=== PATIENT | female | born 1965 | race Caucasian/White ===

== ENCOUNTER 2016-08-12 22:22 | Emergency (ER) | payer OTHER ==
[~2016-08-12] VITALS: Ht 165.1 cm; Wt 77.2 kg
[~2016-08-12 22:22] MED LIST: ALBU2.5V4 IH; ALBU8.5H4 IH; ALPR1TAB7 PO; BECL8.7A6 IH; IBUP-1827 PO; LEVO88TA4 PO; LITH300T2 PO; LORA10CA PO; SIME80TA53 PO; [UNRECOGNIZED DRUG - OTHER] SUBCUTA079
[2016-08-12 22:24] VITALS: BP 159/98; PULSE 98; RESP 16; O2SAT 99
[2016-08-12 23:25] VITALS: BP_SYST 106; BP_SYST 146; BP_DIAS 71; BP_DIAS 89; PULSE 60; PULSE 98; RESP 18; O2SAT 100; O2SAT 98
--- NOTE | 2016-08-13 00:19 | ED.REPORT ---
HPI-General Illness Date of Service Aug 13, 2016 ED Provider: Bill Baer MD The patient is a 50year old female who presents to the ED due to toe fungus onset 3 weeks ago. She recently found out that her house has active, toxic mold and bed bugs. The mold is going to be removed from her house tomorrow. She has been having some wheezing and is concerned that this is also due to mold in her home. She has multiple vague complaints which all seem to be related to her concern about presence of mold in the house. Nursing Notes Stated Complaint: SHORT OF BREATH,POSSIBILITY OF MOLD EXPOSURE Chief Complaint: General Complaint Nursing Notes Reviewed: Yes Allergies: Coded Allergies: cephalexin (Verified Allergy, Severe, ANAPHYLAXIS, 07/12/15) Animal Dander (Verified Allergy, Unknown, UNKNOWN, 07/12/15) fentanyl (Verified Adverse Reaction, Intermediate, Nausea, 02/15/16) Patient states "it didnt help my pain and it made me really nauseated." Uncoded Allergies: "EVERYTHING OUTSIDE." (Allergy, Unknown, UNKNOWN (TOMATO, CAT HAIR), ) Scheduled Beclomethasone Dipropionate (Qvar) 8.7 Gm Aer.w.adap 8.7 GM IH BID Levothyroxine (Levothyroxine) 88 Mcg Tablet 88 MCG PO DAILY [place] Carbonate ([place] Carbonate) 300 Mg Tablet 300 MG PO DAILY Loratadine (Claritin) 10 Mg Capsule 10 MG PO DAILY Scheduled PRN Albuterol HFA (Albuterol HFA) 8.5 Gm Hfa.aer.ad 1 PUFF IH Q4 PRN PRN For Shortness of Breath Albuterol Neb Soln (Albuterol Neb Soln) 2.5 Mg/3 Ml Vial.neb 2.5 MG IH TID PRN PRN For Shortness of Breath Alprazolam (Alprazolam) 1 Mg Tablet 1 MG PO HS PRN PRN For Anxiety Ibuprofen (Ibuprofen) 600 Mg Tablet 600 MG PO QID PRN PRN For Pain Simethicone (Gas-X) 80 Mg Tablet 80 MG PO QID PRN PRN Flatulence Miscellaneous Medications ([B12 injection]) [id number] General Time Seen by MD: 23:01 Chief Complaint Other (toe fungus) Hx Obtained From: Patient Arrived By: Walk-in Sudden in Onset?: Yes Onset Occurred: More than a week ago... (3 weeks) Symptom Duration: Since onset Severity: Current: No pain currently Recent Healthcare: No recent doctor visit, No recent hospitalization Similar Sx Previous: No Past Medical History Past Medical History Previous [place] Anxiety Depression Asthma Obstructive sleep apnea on CPAP Thyroid disease Cervical myelopathy-status post recent surgery by Dr. Leahy in April 2014 Symptomatic lower extremity edema Past Surgical History thyroidectomy - with some residual hoarseness neck surgery with plates inserted 04/2014 IV drug abuse, in remission 3 years Bunionectomy of right toe Reports: Appendectomy Family History Noncontributory Smoking History Current Every Day Smoker Social History Alcohol Use: Denies alcohol use Drug Use: In recovery, Meth Occupation lives with partner, no work or school 12/21/2015 Ambulatory Status Independent Review of Systems Full Review of Systems Constitutional: Denies: Chills, Fever Respiratory: Denies: Non-productive cough, Shortness of breath Musculoskeletal: Reports: Extremity swelling (bilateral lower extremity swelling) Skin: Reports Itching, Reports Rash (toe fungus), Denies Diaphoresis Neurologic: Denies: Change LOC, Dizziness, Headache, Lightheaded, Problem walking Complete sys rev & neg: except as marked. Physical Exam Vital Signs Vital Signs Date Time Temp Pulse Resp B/P Pulse Ox O2 Delivery O2 Flow Rate FiO2 08/13/16 00:51 98 18 146/89 98 Room Air 08/12/16 23:25 98 18 146/89 98 Room Air 08/12/16 22:24 36.6 98 16 159/98 99 Room Air Initial VS: Reviewed General/Constitutional: Awake, Alert, No acute distress Head / Eyes: Atraumatic, Normocephalic, PERRL, EOMI Respiratory / Chest: Atraumatic, Breath sounds NL, Breath sounds = bilat, No respiratory distress Cardiovascular: Heart rate NL, Regular rhythm, Heart sounds NL Lower Ext Edema: Positive: Bilateral 1+, Pitting Abdomen: Atraumatic, Soft, Non-tender Upper Extremities Upper Extremity / MS: Atraumatic, Inspection NL, Full range of motion, No deformity Lower Extremity / Pelvis / MS: Atraumatic, Inspection NL, Full range of motion , No deformity bilateral LE edema Skin: Atraumatic, Warm, Dry Neurologic: Oriented X3, Speech NL Interpretation & Diagnostics X-Ray Chest Interpretation Chest Xray Interpretation: IMPRESSION: no acute findings View: Portable Interpretation / Wet Read by: Interpret - Radiologist Re-Eval/Medical Decision Med Decision/Clinical Course The patient is a 50year old female who presents to the ED due to toe fungus onset 3 weeks ago. She recently found out that her house has active, toxic mold and bed bugs. The mold is going to be removed from her house tomorrow. She has been having some wheezing and is concerned that this is also due to mold in her home. She has multiple vague complaints which all seem to be related to her concern about presence of mold in the house. Here in the emergency department the patient is afebrile stable vital signs and in no apparent distress. Examination of her feet reveals intertriginous maceration consistent with tinea pedis. While she does not have any wheezing she reports that she in the past has responded to albuterol and that she is out of albuterol. Therefore she was provided with an MDI. She additionally reports that she has extensive skin itching is provided with Benadryl. Chest x-ray demonstrated no acute cardiopulmonary process or focal consolidations. Patient seems to have a lot of anxiety related to the presence of mold in her home at this time is no evidence of any acutely life-threatening process. She is advised to follow up with her primary care physician. At this time I feel she is appropriate for discharge home. Prior to discharge follow-up and return precautions were reviewed in detail with the patient who verbalized understanding and agreement with the plan. The patient was discharged in stable condition. Counseled Regarding: Diagnosis, Lab results, Need for follow-up, When/why to return to ED Discharge & Departure Primary Impression: Itching Additional Impressions: Tinea pedis Laterality: bilateral Qualified Code: B35.3 - Tinea pedis Wheezing Disposition: Home Discharge Condition All VS Reviewed: Yes Condition: Stable Additional Instructions: Thank you for seeking care at the emergency room. Our primary goal today in the ED was to evaluate you for any life-threatening conditions. Your evaluation was reassuring. Your chest x-ray is normal. You will be discharged with Benadryl and anti-fungal clotrimazole cream. You should follow-up with your primary doctor in the next week. You should return to the ED immediately if you develop fevers, vomiting, cough, shortness of breath, chest pain, lightheadedness, weakness or any other concerning signs or symptoms. Thank you for letting us partake in your care today. Referrals: Mariana Reagan (PCP) Scribe Attestation Portion of this note were transcribed by Mesha Mclain. I, Dr. Baer, personally performed the history, physical exam, and medical decision-making: I reviewed and confirmed the accuracy for the information in the transcribed note. Signed by: queta Guzman, 08/13/16 0200 copies to: Mariana Reaagn Beck O MD Aug 13, 2016 00:19 Mesha Mclain Aug 13, 2016 00:22
[2016-08-13] MEDS ORDERED: diphenhydrAMINE 25 mg Capsule PO ONE (00:20)
[2016-08-13] MEDS ORDERED: Albuterol HFA 60 Puff 8 Gm Inhaler INHALATION PRN (00:25)
[2016-08-13] MEDS ORDERED: Albuterol HFA 200 Puff Inhaler (Vent Pts Only) INHALATION PRN (00:30)
[2016-08-13 00:51] VITALS: BP 146/89; PULSE 98; RESP 18; O2SAT 98
--- NOTE | 2016-08-13 08:13 | DRSVH ---
PROCEDURE: X-RAY CHEST, TWO VIEWS ([id number]) INDICATIONS: SHORTNESS OF BREATH, cough TECHNIQUE: 2 views of the chest were acquired. COMPARISON: [facility], CR, XR CHEST 1VW (PORTABLE), 02/14/2016, 18:20. [facility], CR, CHEST 2VW, 05/21/2014, 16:38. FINDINGS: Surgical changes and devices: Postoperative changes of the lower cervical spine are noted. Lungs and pleura: No pleural effusions or pneumothorax. Lungs are clear. Mediastinum: Mediastinal contours are normal. Heart size is normal. Bones and chest wall: No suspicious bony abnormalities. Soft tissues appear unremarkable. IMPRESSION: Stable chest. No acute cardiopulmonary process is evident. Dictated by: Dwayne Maldonado M.D. on 08/13/2016 at 8:11 Approved by: Dwayne Maldonado M.D. on 08/13/2016 at 8:12
== END 2016-08-13 00:53 | disposition home or self-care (01) ==
LOC: SED 22:22
DX: B35.3 Tinea pedis (principal); L29.9 Pruritus, unspecified; R06.2 Wheezing; I25.2 Old myocardial infarction; F41.9 Anxiety disorder, unspecified; F32.9 Major depressive disorder, single episode, unspecified; J45.909 Unspecified asthma, uncomplicated; E07.9 Disorder of thyroid, unspecified; G47.33 Obstructive sleep apnea (adult) (pediatric); F17.200 Nicotine dependence, unspecified, uncomplicated; Z99.89 Dependence on other enabling machines and devices; Z86.14 Personal history of Methicillin resistant Staphylococcus aureus infection; Z88.1 Allergy status to other antibiotic agents; Z88.5 Allergy status to narcotic agent

== ENCOUNTER 2016-08-28 14:57 | Emergency (ER) | payer OTHER ==
[~2016-08-28] VITALS: Ht 165.1 cm; Wt 79.5 kg
[2016-08-28 15:01] VITALS: BP 145/79; PULSE 110; RESP 16; O2SAT 96
[2016-08-28] MEDS ORDERED: 0.9% Sodium Chloride 1,000 ML IV ONE (15:26)
--- NOTE | 2016-08-28 15:26 | ED.REPORT ---
HPI-General Illness Date of Service Aug 28, 2016 ED Provider: Bill Baer MD Patient is a 50 year old female with a history of asthma, PTSD. polysubstance abuse who presents to the ED with multiple complaints that she thinks are linked to a toxic black mold exposure. She complains include incontinence ( except sometimes urine squirts out when she coughs), intermittent shortness of breath, vague abdominal pain, occasional vision loss, losing her hair, sores on her legs, yellow toenails, that her "vagina has turned black" and that her "kidneys are failing her". The patient also states that she has seen parasites in her stool and on her skin and that when she goes into the sun "spots (on her skin) that were white will turn red". She reports that it seems like a " chemical reaction" because she noticed the "mold on her feet" after taking a shower at her house, where she can "literally see the mold in her house and car ". The patient is insistent on talking to Dr. Martini because he "specializes in this area and will be able to understand". She additionally states that her dog and family members have all been affected and she has multiple photos on her cell phone that she shows to me. In my assessment none of these photos demonstrate any objective evidence of illness. She was seen at the ED on and diagnosed with a toe fungus but states that her symptoms have been getting progressively worse the past week. Nursing Notes Stated Complaint: KIDNEY/URINE ISSUES Chief Complaint: General Complaint Nursing Notes Reviewed: Yes Allergies: Coded Allergies: cephalexin (Verified Allergy, Severe, ANAPHYLAXIS, 07/12/15) Animal Dander (Verified Allergy, Unknown, UNKNOWN, 07/12/15) fentanyl (Verified Adverse Reaction, Intermediate, Nausea, 02/15/16) Patient states "it didnt help my pain and it made me really nauseated." Uncoded Allergies: "EVERYTHING OUTSIDE." (Allergy, Unknown, UNKNOWN (TOMATO, CAT HAIR), ) Scheduled Beclomethasone Dipropionate (Qvar) 8.7 Gm Aer.w.adap 8.7 GM IH BID Levothyroxine (Levothyroxine) 88 Mcg Tablet 88 MCG PO DAILY [place] Carbonate ([place] Carbonate) 300 Mg Tablet 300 MG PO DAILY Loratadine (Claritin) 10 Mg Capsule 10 MG PO DAILY Scheduled PRN Albuterol HFA (Albuterol HFA) 8.5 Gm Hfa.aer.ad 1 PUFF IH Q4 PRN PRN For Shortness of Breath Albuterol Neb Soln (Albuterol Neb Soln) 2.5 Mg/3 Ml Vial.neb 2.5 MG IH TID PRN PRN For Shortness of Breath Alprazolam (Alprazolam) 1 Mg Tablet 1 MG PO HS PRN PRN For Anxiety Ibuprofen (Ibuprofen) 600 Mg Tablet 600 MG PO QID PRN PRN For Pain Simethicone (Gas-X) 80 Mg Tablet 80 MG PO QID PRN PRN Flatulence Miscellaneous Medications ([B12 injection]) [id number] General Time Seen by MD: 15:24 Chief Complaint Other Hx Obtained From: Patient Arrived By: Walk-in Sudden in Onset?: Yes Onset Occurred: More than a week ago... (1 month) Symptom Duration: Since onset Associated with: Reports: Abdominal pain, Difficulty breathing, Shortness of breath Recent Healthcare: No recent hospitalization, Recent doctor visit Similar Sx Previous: Yes Past Medical History Past Medical History Previous [place] Anxiety Depression Asthma Obstructive sleep apnea on CPAP Thyroid disease Cervical myelopathy-status post recent surgery by Dr. Leahy in April 2014 Symptomatic lower extremity edema Past Surgical History thyroidectomy - with some residual hoarseness neck surgery with plates inserted 04/2014 IV drug abuse, in remission 3 years Bunionectomy of right toe Reports: Appendectomy Family History Noncontributory Smoking History Current Every Day Smoker Social History Alcohol Use: Denies alcohol use Drug Use: In recovery, Meth Other Social History: Good social support Occupation lives with partner, no work or school 12/21/2015 Ambulatory Status Independent Review of Systems Full Review of Systems Constitutional: Denies: Chills, Fever Eyes: Reports: Visual loss bilateral Respiratory: Reports: Shortness of breath, Denies: Non-productive cough GI: Reports: Abdominal pain Female: Reports: Flank pain, Incontinence Allergy / Immune: Reports: Allergic reaction Complete sys rev & neg: except as marked. Physical Exam Vital Signs Vital Signs Date Time Temp Pulse Resp B/P Pulse Ox O2 Delivery O2 Flow Rate FiO2 08/28/16 18:10 36.7 93 16 120/71 98 Room Air 08/28/16 16:21 93 120/71 98 Room Air 08/28/16 15:01 36.7 110 16 145/79 96 Room Air Initial VS: Reviewed General/Constitutional: Awake, Alert perseverating Head / Eyes: Atraumatic, Normocephalic, PERRL, EOMI Neck: Atraumatic, Supple, Full range of motion Respiratory / Chest: Atraumatic, Breath sounds NL, Breath sounds = bilat, No respiratory distress Cardiovascular: Heart rate NL, Regular rhythm, Heart sounds NL Lower Extremity / Pelvis / MS: Atraumatic, Full range of motion small superficial scabs bilateral lower extremities that appear to be from her picking at herself Skin: No rash, Warm, Dry Female Genitourinary: Dairy Management Specialist present, Atraumatic, External genitalia NL external genitalia did not appear discolored. Neurologic: Oriented X3, Speech NL, No motor deficits, No sensory deficits PSYCHIATRIC: delusional Interpretation & Diagnostics Lab Results Interpretation Result Diagram: 08/28/16 1538 08/28/16 1538 Test 08/28/16 15:38 08/28/16 17:30 White Blood Count 6.7th/mm3 (3.8-10.1) Red Blood Count 4.43mil/mm3 (3.90-5.20) Hemoglobin 12.9g/dL (12.0-15.6) Hematocrit 38.2% (35.0-46.0) Mean Corpuscular Volume 86.2fL (81-100) Mean Corpuscular Hemoglobin 29.1pg (27.0-35.0) Mean Corpuscular Hemoglobin Concent 33.8% (32.0-37.0) Red Cell Distribution Width 12.8% (12.3-15.4) Platelet Count 227bil/L (150-400) Neutrophils (%) (Auto) 62.9% (40-74) Lymphocytes (%) (Auto) 31.1% (14-46) Monocytes (%) (Auto) 4.9% (4-12) Eosinophils (%) (Auto) 0.7% (0-5) Basophils (%) (Auto) 0.1% (0-3) Sodium Level 138mEq/L (134-144) Potassium Level 4.5mEq/L (3.5-5.2) Chloride Level 103mEq/L (97-108) Carbon Dioxide Level 26mmol/L (18-29) Blood Urea Nitrogen 13mg/dL (6-24) Creatinine 0.78mg/dL (0.57-1.00) Estimat Glomerular Filtration Rate 112mL/min (>59) Glucose Level 107mg/dL (60-99) Calcium Level 9.2mg/dL (8.5-10.1) Magnesium Level 1.9mg/dL (1.6-2.6) Total Bilirubin 0.2mg/dL (0.0-1.2) Aspartate Amino Transf (AST/SGOT) 25U/L (0-50) Alanine Aminotransferase (ALT/SGPT) 23U/L (0-32) Alkaline Phosphatase 130U/L (25-150) Total Protein 6.2g/dL (6.4-8.4) Albumin 3.7g/dL (3.4-5.0) Thyroid Stimulating Hormone (TSH) 2.230uIU/mL (0.450-4.500) Human Chorionic Gonadotropin, Qual Negative (Negative) Hold [place] Top Tube Received (Received) Urine Color Yellow (YELLOW) Urine Appearance Hazy (CLEAR,HAZY) Urine pH 6.5 (5.0-8.0) Urine Specific [place] 1.010 (1.003-1.035) Urine Protein Negativemg/dL (NEG,TRACE) Urine Glucose (UA) Negativemg/dL (NEGATIVE) Urine Ketones Negativemg/dL (NEGATIVE) Urine Occult Blood Negative (NEGATIVE) Urine Nitrite Negative (NEGATIVE) Urine Bilirubin Negative (NEGATIVE) Urine Urobilinogen Normalmg/dL (NORMAL) Urine Leukocyte Esterase Negative (NEGATIVE) Urine RBC 0-2/hpf (0-2) Urine WBC 0-5/hpf (0-5) Urine Epithelial Cells Moderate/hpf (NONE-MOD) Urine Crystals Oxalic acid crystals (NONE Urine Bacteria Few/hpf (NONE-FEW) Urine Hyaline Casts None/lpf (NONE) Urine Granular Casts None seen (NONE SEEN) Urine Waxy Casts None seen (NONE SEEN) Urine Red Blood Cell Casts None seen (NONE SEEN) Urine White Blood Cell Casts None seen (NONE SEEN) Urine Mucus Present (None Seen) Urine Trichomonas None seen (NONE SEEN) Urine Yeast None (NONE SEEN) Urinalysis Comment None Urine Culture Reflexed Not indicated Urine Opiates Screen Negative Urine Methadone Screen Negative Urine Barbiturates Screen Negative Urine Amphetamines Screen Positive Urine Benzodiazepines Screen Positive Urine Cocaine Metabolite Screen Negative Urine Cannabinoids Screen Negative Re-Eval/Medical Decision Med Decision/Clinical Course Patient is a 50 year old female with a history of asthma, PTSD. polysubstance abuse who presents to the ED with multiple complaints that she thinks are linked to a toxic black mold exposure. She complains include incontinence ( except sometimes urine squirts out when she coughs), intermittent shortness of breath, vague abdominal pain, occasional vision loss, losing her hair, sores on her legs, yellow toenails, that her "vagina has turned black" and that her "kidneys are failing her". The patient also states that she has seen parasites in her stool and on her skin and that when she goes into the sun "spots (on her skin) that were white will turn red". She reports that it seems like a " chemical reaction" because she noticed the "mold on her feet" after taking a shower at her house, where she can "literally see the mold in her house and car ". The patient is insistent on talking to Dr. Martini because he "specializes in this area and will be able to understand". She additionally states that her dog and family members have all been affected and she has multiple photos on her cell phone that she shows to me. In my assessment none of these photos demonstrate any objective evidence of illness. She was seen at the ED on and diagnosed with a toe fungus but states that her symptoms have been getting progressively worse the past week. Order list: 1L NS, Zofran Labs as below: CMP and CBC unremarkable Preg: negative TSH within normal limits Tox screen: positive for methamphetamine and benzodiazapines At this time I see no cohesive set of symptoms that would be indicative of a single unifying organic explanation of this patient's symptoms. There is no evidence of head trauma and no lateraling neurologic deficits. CBC and CMP are unremarkable. Regarding the patient's concern that her "kidneys are shutting down" I see no evidence thereof. The patient adamantly denies any methamphetamine use however her urine drug screen is clearly positive for methamphetamines. Whether or not there is underlying medical illness in addition to her presumed methamphetamine use is not entirely clear. I brought this up with the patient and urged her to have a mental health evaluation however she adamantly states that she knows that she has parasites in her body and refuses to be seen by her social media marketing specialist or have a mental health workup. I had a long discussion with the patient and her family regarding my concerns about her mental health and drug use. I additionally discussed the patient with Dr. Martini and reviewed my workup and assessment thus far. Dr. Martini states that he would be willing to see her in the next week or two in order to further rule out any organic causes of her symptoms. I discussed my assessment with the patient's boyfriend and mother. They seem to have some insight into the fact that this is largely a total health related however they seem to still have some concern that she may have parasites inside her body. I have explained that I see no evidence thereof but this can be further worked up on an outpatient basis. I spent a very long time and discussions with the patient' s family outside of the room as well as the patient at the bedside. She leaves angry we have not done more of a workup including stool studies and having Dr. Martini evaluated here in the emergency department. At this time however I see no evidence that this is indicated. She refuses social work evaluation however I have sent them home with resources to help with detox for methamphetamine. Prior to discharge follow-up and return precautions were reviewed in detail with the patient and family who verbalized understanding with the plan. The patient was discharged in stable condition. Time of Eval: 17:45 Re-Evaluation/Progress Note: Discussed results and plan for discharge. Patient understands and agrees to plan. All questions were addressed. Consultation : Referral / Consult Name: Jose Martini MD Call Returned at: 17:18 Dining Manager: Will see in office, Agrees with eval, Agrees with plan Note: Consult with Dr. Martini, who agrees to see the patient at the clinic in a week or two. 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 It is difficult for us to make definitive diagnoses in the ED Our primary goal today in the ED was to evaluate you for any life-threatening conditions. Your evaluation was reassuring. You should follow-up with your primary doctor in the next week. I spoke to Dr. Martini, who said he will see you at the clinic in a week. We recommend that you stop using meth. You should return to the ED immediately if you develop fever, vomiting, cough, shortness of breath, weakness or any other concerning signs or symptoms. Thank you for letting us partake in your care today. Referrals: Mariana Reagan (PCP) Roxanna Attestation Portions of this note were transcribed by Annalisa Govea. I, Dr. Baer personally performed the history, physical exam and medical decision-making; I reviewed and confirmed the accuracy of the information in the transcribed note. Signed by: Roxanna Stapleton, 08/28/16 and 1600 copies to: Mariana Reagan Beck O MD Aug 28, 2016 15:26 Luli Govea Aug 28, 2016 15:59
[2016-08-28] MEDS ORDERED: Ondansetron 2 mg/mL 2 mL Inj IVPUSH ONE (15:30)
[2016-08-28 16:10] LABS: BASOPHILS % (AUTO) 0.1 % (0-3); EOSINOPHILS % (AUTO) 0.7 % (0-5); MONOCYTES % (AUTO) 4.9 % (4-12); Mean Corpuscular Hemoglobin 29.1 pg (27.0-35.0); Mean Corpuscular Volume 86.2 fL (81-100); NEUTROPHILS % (AUTO) 62.9 % (40-74); Platelet Count 227 bil/L (150-400)
[2016-08-28 16:21] VITALS: BP 120/71; PULSE 93; O2SAT 98
[2016-08-28 16:35] LABS: Magnesium 1.9 mg/dL (1.6-2.6)
[2016-08-28 18:03] LABS: APPEARANCE,URINE HAZY (CLEAR,HAZY); COLOR,URINE YELLOW (YELLOW); OCCULT BLOOD,URINE NEGATIVE (NEGATIVE); PH,URINE 6.5 (5.0-8.0); UROBILINOGEN,URINE NORMAL (NORMAL)
[2016-08-28 18:10] VITALS: BP 120/71; PULSE 93; RESP 16; O2SAT 98
== END 2016-08-28 18:10 | disposition home or self-care (01) ==
LOC: SED 14:57
DX: F22 Delusional disorders (principal); F15.10 Other stimulant abuse, uncomplicated; F17.200 Nicotine dependence, unspecified, uncomplicated; I25.2 Old myocardial infarction; Z79.899 Other long term (current) drug therapy; Z88.1 Allergy status to other antibiotic agents; Z88.8 Allergy status to other drugs, medicaments and biological substances; F43.10 Post-traumatic stress disorder, unspecified
CPT/HCPCS: 36415; 80053; 81000; 81002; 83735; 84443; 84703; 85025; 99284; G0480

== ENCOUNTER 2016-10-02 16:04 | Emergency (ER) | payer OTHER ==
[~2016-10-02] VITALS: Ht 167.6 cm; Wt 96.8 kg
[2016-10-02 16:27] VITALS: BP 154/74; PULSE 117; RESP 28
[2016-10-02 17:17] LABS: BASOPHILS % (AUTO) 0.2 % (0-3); EOSINOPHILS % (AUTO) 0.2 % (0-5); MONOCYTES % (AUTO) 5.9 % (4-12); Mean Corpuscular Volume 84.8 fL (81-100); Platelet Count 317 bil/L (150-400)
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
[2016-10-02 17:35] LABS: TROPONIN T < 0.010 ug/L (0.0-0.011)
--- NOTE | 2016-10-02 17:46 | DRSVH ---
PROCEDURE: X-RAY CHEST ONE VIEW ([id number]) INDICATIONS: chest pain TECHNIQUE: One view of the chest was acquired. COMPARISON: None. FINDINGS: Surgical changes and devices: Cervical fixation hardware is intact. Lungs and pleura: No pleural effusions or pneumothorax. Lungs are clear. Mediastinum: Mediastinal contours appear normal. Heart size is normal. Bones and chest wall: No suspicious bony lesions. Overlying soft tissues appear unremarkable. IMPRESSION: No acute cardiopulmonary findings. Dictated by: Alix Gonzales M.D. on 10/02/2016 at 17:44 Approved by: Alix Gonzales M.D. on 10/02/2016 at 17:45
[2016-10-02 19:13] VITALS: BP 122/82; PULSE 95; RESP 24; O2SAT 96
[2016-10-02 21:29] VITALS: BP 120/86; PULSE 81; RESP 18; O2SAT 95
== END 2016-10-02 22:08 | disposition home or self-care (01) ==
LOC: SED 16:04 → EDBD 16:04 → EDUNIT# 16:04 → SED 22:08
DX: F15.90 Other stimulant use, unspecified, uncomplicated (principal); R07.89 Other chest pain; I25.2 Old myocardial infarction; F41.8 Other specified anxiety disorders; F17.200 Nicotine dependence, unspecified, uncomplicated; G47.33 Obstructive sleep apnea (adult) (pediatric); Z99.89 Dependence on other enabling machines and devices; Z88.1 Allergy status to other antibiotic agents; Z88.5 Allergy status to narcotic agent
CPT/HCPCS: 36415; 71010; 80053; 84443; 84484; 85025; 90791; 93005; 99285; G0480

== ENCOUNTER 2016-10-29 13:28 | Emergency (ER) | payer OTHER ==
[~2016-10-29] VITALS: Ht 165.1 cm; Wt 72.7 kg
[2016-10-29 13:37] VITALS: BP 128/67; PULSE 116; RESP 16; O2SAT 100
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
[2016-10-29] MEDS ORDERED: 0.9% Sodium Chloride 1,000 ML IV ONE (14:32)
[2016-10-29] MEDS ORDERED: Ondansetron 2 mg/mL 2 mL Inj IVPUSH ONE (14:35)
[2016-10-29] MEDS: HYDROmorphone 1 mg/mL Inj IVPUSH PRN ×2 (14:53→15:22)
[2016-10-29 15:06] LABS: BASOPHILS % (AUTO) 0 % (0-3); EOSINOPHILS % (AUTO) 1 % (0-5); MONOCYTES % (AUTO) 9 % (4-12); Mean Corpuscular Hemoglobin 29.5 pg (27.0-35.0); Mean Corpuscular Volume 85 fL (81-100); NEUTROPHILS % (AUTO) 65 % (40-74); Platelet Count 205 bil/L (150-400)
--- NOTE | 2016-10-29 15:10 | DRSVH ---
PROCEDURE: CT BRAIN WITHOUT CONTRAST ([id number]) INDICATIONS: fall, head & neck pain TECHNIQUE: Noncontrast 4.5 mm thick angled axial sections acquired from the foramen magnum to the vertex, with c oronal reformats. COMPARISON: None. FINDINGS: Image quality: Excellent. CSF spaces: Basal cisterns are patent. No extra-axial fluid collections. Ventricles are normal in size and shape. Brain: No midline shift. No intracranial masses or hemorrhage. Li-white matter interface is norm al. Skull and face: Calvarium and visualized facial bones are intact, without suspicious lesions. There is a bandage over the right frontoparietal scalp. Sinuses: Visualized sinuses and mastoids are clear. IMPRESSION: No traumatic abnormalities found intracranially. Bandage over the scalp in the right frontal parietal area. Dictated by: Jacky Barrera M.D. on 10/29/2016 at 15:05 Approved by: Jacky Barrera M.D. on 10/29/2016 at 15:09
--- NOTE | 2016-10-29 15:16 | DRSVH ---
PROCEDURE: CT CERVICAL SPINE WITHOUT CONTRAST ([id number]) INDICATIONS: fall, head & neck pain TECHNIQUE: Noncontrast 3 mm thick sections acquired from the skull base to the T4 level. Sagittal and coronal r eformats were then constructed. For radiation dose reduction, the following was used: automated exp osure control, adjustment of mA and/or kV according to patient size. COMPARISON: None. FINDINGS: Image quality: Excellent. Bones: No fractures or dislocations. Visualized superior ribs are intact. Degenerative facet rebollar es are present. Previous anterior fusion of C5, C6, C7 with plate and screws has been performed in th e past. Soft tissues: Prevertebral soft tissues are normal in thickness. No paravertebral hematomas. No ap ical pneumothoraces. IMPRESSION: No acute bony abnormality is found in the cervical spine. Dictated by: Jacky Barrera M.D. on 10/29/2016 at 15:09 Approved by: Jacky Barrera M.D. on 10/29/2016 at 15:15
[2016-10-29 15:55] LABS: Lipase 11 U/L (13-60)
--- NOTE | 2016-10-29 16:32 | DRSVH ---
PROCEDURE: X-RAY PELVIS, ONE OR TWO VIEWS ([id number]) INDICATIONS: trauma to scalp, fall TECHNIQUE: 1 view(s) of the pelvis acquired. COMPARISON: [facility], CT, CT ABD PELVIS W CON, 12/18/2015, 13:47. FINDINGS: Bones: No obvious or displaced fractures of the pelvis are evident. Please note that evaluation for subtle fractures of the pelvis is limited on this single frontal view. There are mild degenerative c hanges of the bilateral hips. At least moderate degenerative changes are present involving the image d lumbosacral spine. Soft tissues: Visualized bowel gas pattern is normal. No suspicious soft tissue calcifications. IMPRESSION: No displaced pelvic fractures are evident. If there is high clinical concern for an acut e pelvic fracture, please consider pelvis CT for further evaluation. Dictated by: Dwayne Maldonado M.D. on 10/29/2016 at 15:30 Approved by: Dwayne Maldonado M.D. on 10/29/2016 at 15:31
--- NOTE | 2016-10-29 16:35 | DRSVH ---
PROCEDURE: X-RAY CHEST ONE VIEW, PORTABLE ([id number]) INDICATIONS: trauma to scalp, fall TECHNIQUE: One view of the chest was acquired. COMPARISON: [facility], CR, XR CHEST 1VW, 10/02/2016, 17:08. FINDINGS: Surgical changes and devices: Postoperative changes of the lower cervical spine are noted. Lungs and pleura: No pleural effusions or pneumothorax. Lungs are clear. Mediastinum: Mediastinal contours appear normal. Heart size is normal. Bones and chest wall: No suspicious bony lesions. Overlying soft tissues appear unremarkable. IMPRESSION: Stable chest. No acute cardiopulmonary process is evident. Dictated by: Dwayne Maldonado M.D. on 10/29/2016 at 15:31 Approved by: Dwayne Maldonado M.D. on 10/29/2016 at 15:33
[2016-10-29 16:45] LABS: APPEARANCE,URINE CLEAR (CLEAR,HAZY); COLOR,URINE YELLOW (YELLOW)
[2016-10-29] MEDS ORDERED: Lidocaine 1%-Epi 1:100,000 50 mL Inj NERVEBLOCK ONE (16:45)
[2016-10-29] MEDS ORDERED: TdaP Vaccine 0.5 mL Inj IM ONE (16:45)
[2016-10-29] MEDS ORDERED: HYDROmorphone 1 mg/mL Inj IVPUSH ONE (16:45)
[2016-10-29 16:46] LABS: OCCULT BLOOD,URINE LARGE (NEGATIVE); UROBILINOGEN,URINE NORMAL (NORMAL)
[2016-10-29 16:53] VITALS: BP 137/71; PULSE 98; RESP 16; O2SAT 100
[2016-10-29] MEDS ORDERED: HYDR-4003 PO (21:29)
[2016-10-29 21:35] VITALS: BP 148/99; PULSE 91; O2SAT 100
== END 2016-10-29 21:36 | disposition home or self-care (01) ==
LOC: SED 13:28
DX: S01.01XA Laceration without foreign body of scalp, initial encounter (principal); Y04.0XXA Assault by unarmed brawl or fight, initial encounter; Y93.89 Activity, other specified; Y92.009 Unspecified place in unspecified non-institutional (private) residence as the place of occurrence of the external cause; Y99.8 Other external cause status; M54.2 Cervicalgia; I25.2 Old myocardial infarction; J45.909 Unspecified asthma, uncomplicated; F41.8 Other specified anxiety disorders; E07.9 Disorder of thyroid, unspecified; G47.33 Obstructive sleep apnea (adult) (pediatric); F17.200 Nicotine dependence, unspecified, uncomplicated; Z90.89 Acquired absence of other organs; Z98.890 Other specified postprocedural states; Z23 Encounter for immunization; Z88.1 Allergy status to other antibiotic agents; Z88.5 Allergy status to narcotic agent; Z91.09 Other allergy status, other than to drugs and biological substances
CPT/HCPCS: 12035; 36415; 70450; 71010; 72125; 72170; 80053; 81001; 83690; 83735; 85025; 85610; 86850; 90471; 90715; 96361; 96374; 96375; 96376; 99285; G0480; J1170; J2060; J2405; J7030